=== PATIENT | male | born 1980 | race Caucasian/White ===

== ENCOUNTER → 2018-02-19 | Outpatient (REF) | payer BC | LOC: M SMT 13:09 | DX: Z30.2 Encounter for sterilization (principal) | CPT/HCPCS: 88302 ==

== ENCOUNTER → 2018-06-13 | Outpatient (REF) | payer BC ==
[2018-06-13 15:24] LABS: IMMMOTILE SPERM CENTRIFUGED ABSENT (ABSENT); IMMOTILE SPERM ABSENT (ABSENT); MOTILE SPERM ABSENT (ABSENT); MOTILE SPERM CENTRIFUGED ABSENT (ABSENT); SEMEN APPEARANCE OPAQUE (OPAQUE); SEMEN VISCOSITY LIQUID (LIQUID); SEMEN VOLUME 2.8 ml (4.0-5.0); SEMEN pH 8.5 (7.0-8.0); WBC CONCENTRATION >1 M/ml (<=1 M/ml)
== END ==
LOC: M SMT 15:12
DX: Z30.2 Encounter for sterilization (principal)
CPT/HCPCS: 89321

== ENCOUNTER 2020-01-26 15:03 | Inpatient (IN) | payer BC ==
[~2020-01-26] VITALS: Ht 182.9 cm; Wt 87.4 kg
[2020-01-26 15:42] LABS: BASO # 0.1 10^3/uL (0.0-0.2); BASO % 0.7 % (0.0-1.0); EOS # 0.3 10^3/uL (0.0-0.5); EOS % 3.5 % (0.0-3.0); HEMATOCRIT 45.1 % (42.0-52.0); HEMOGLOBIN 15.2 g/dl (13.5-17.5); LYMPH # 1.7 10^3/uL (1.5-5.0); LYMPH % 23.7 % (24.0-44.0); MEAN CORPUSCULAR HEMOGLOBIN 30.9 pg (27.0-33.0); MEAN CORPUSCULAR HGB CONC 33.7 g/dl (32.0-36.5); MEAN CORPUSCULAR VOLUME 91.7 fl (80.0-96.0); MONO # 0.5 10^3/uL (0.0-0.8); MONO % 6.8 % (0.0-5.0); NEUTROPHILS # 4.7 10^3/uL (1.5-8.5); NEUTROPHILS % 64.9 % (36.0-66.0); PLATELET COUNT, AUTOMATED 297 10^3/uL (150-450); RED BLOOD COUNT 4.92 10^6/uL (4.30-6.10); WHITE BLOOD COUNT 7.2 10^3/uL (4.0-10.0)
--- NOTE | 2020-01-26 15:42 | REP ---
Portable chest, 03:25 p.m., single AP view the patient upright: There are no comparisons. The lung rai are clear. The cardiac size is normal. The lucero, mediastinum, and skeletal structures are unremarkable. Impression: Negative portable chest. Electronically Signed by Norm Ramos MD 01/26/2020 03:34 P
[2020-01-26 15:47] LABS: INR 0.96; PROTHROMBIN TIME 12.5 SECONDS (11.8-14.0)
[2020-01-26 15:48] LABS: PARTIAL THROMBOPLASTIN TIME 29.4 SECONDS (25.0-38.4)
--- NOTE | 2020-01-26 15:57 | REP ---
CT brain without contrast: History: CVA. No comparison study. Findings: Preliminary digital vat overhauler radiograph is unremarkable. On bone window settings, the bony calvarium is intact. Visualized paranasal sinuses are clear. No intraorbital abnormality is seen. On soft tissue window settings, lateral, third, fourth ventricles are normal in size and position. There is an ill-defined low density area in the basal ganglia on the left measuring approximately 14 mm in diameter. This is consistent with a subacute infarction. There is no evidence of intracranial hemorrhage. No mass or extra-axial fluid collection is seen. Pop/white differentiation pattern is otherwise normal. Impression: Ill-defined 14 mm low density in the left basal ganglia consistent with subacute infarction. No hemorrhage is seen. Otherwise negative. Electronically Signed by Claudio Gerber MD 01/26/2020 05:49 P
[2020-01-26 16:01] LABS: CK-MB VALUE MASS < 1.0 NG/ML (<3.6); CPK CREATINE PHOSPHOKINASE 79 U/L (39-308); MB/CK RELATIVE INDEX 1.27 (< OR =4); TROPONIN I < 0.02 NG/ML (< 0.10)
--- NOTE | 2020-01-26 20:19 | REPVR ---
PROCEDURE INFORMATION: Exam: MR Head Without Contrast Exam date and time: 01/26/2020 7:46 PM Age: 40 years old Clinical indication: Altered mental status/memory loss; Confusion or disorientation; Patient HX: Right sided weakness speech issues coordination is off said he been like this for two days; Additional info: CVA TECHNIQUE: Imaging protocol: MR of the head without contrast. COMPARISON: CT Head without contrast 01/26/2020 3:25 PM FINDINGS: Brain: 2 cm acute infarct in the left caba radiata extending into the left basal ganglia. Ventricles: Normal. No ventriculomegaly. Bones/joints: Unremarkable. Soft tissues: Unremarkable. Sinuses: Normal as visualized. No acute sinusitis. Mastoid air cells: Normal as visualized. No mastoid effusion. Orbits: Unremarkable. IMPRESSION: Acute infarct in the left caba radiata extending into the left basal ganglia. Electronically signed by: Maximus Fosetr On 01/26/2020 20:19:26 PM
--- NOTE | 2020-01-26 20:26 | REPVR ---
PROCEDURE INFORMATION: Exam: MR Angiogram Head Without Contrast, Arteries Exam date and time: 01/26/2020 7:46 PM Age: 40 years old Clinical indication: Cognitive deficit; Altered mental status; Patient HX: Right sided weakness speech issues coordination is off said he been like this for two days; Additional info: CVA TECHNIQUE: Imaging protocol: MR angiogram head without contrast. Exam focused on the arteries. 3D rendering: MIP and/or 3D reconstructed images were created by the technologist. COMPARISON: CT Head without contrast 01/26/2020 3:25 PM FINDINGS: Right internal carotid artery: Unremarkable. Intracranial segment is patent with no significant stenosis. No aneurysm. Right anterior cerebral artery: Unremarkable. No occlusion or significant stenosis. No aneurysm. Right middle cerebral artery: Unremarkable. No occlusion or significant stenosis. No aneurysm. Right posterior cerebral artery: Unremarkable. No occlusion or significant stenosis. No aneurysm. Right vertebral artery: Unremarkable. No occlusion or significant stenosis. No aneurysm. Left internal carotid artery: Unremarkable. Intracranial segment is patent with no significant stenosis. No aneurysm. Left anterior cerebral artery: Unremarkable. No occlusion or significant stenosis. No aneurysm. Left middle cerebral artery: Unremarkable. No occlusion or significant stenosis. No aneurysm. Left posterior cerebral artery: Unremarkable. No occlusion or significant stenosis. No aneurysm. Left vertebral artery: Unremarkable. No occlusion or significant stenosis. No aneurysm. Basilar artery: Unremarkable. No occlusion or significant stenosis. No aneurysm. IMPRESSION: No acute abnormality. Electronically signed by: Maximus Foster On 01/26/2020 20:26:24 PM
[2020-01-26] MEDS: NS 1,000 ML IV SCH (21:03)
--- NOTE | 2020-01-26 21:24 | HPEPDOC ---
[facility] Medical History & Physical Date of Admission Jan 26, 2020 Date of Service: Jan 26, 2020 Attending Physician: ED STEINBERG MD History and Physical TIME OF SERVICE: 10:15 PM CHIEF COMPLAINT: Difficulty speaking and lack of coordination HISTORY OF PRESENT ILLNESS: This is a 40-year-old male who came to the hospital for evaluation of developed difficulties "getting his words out" and lack of coordination with his right hand. This began about 3 days ago while he was drinking coffee; he dropped the coffee and developed difficulties with his speech. His told him that he might of had a stroke, but the patient did not come to the hospital because he was in denial. Yesterday evening, his symptoms became worse so he decided to come to the hospital for evaluation. Denies falling, denies having a headache, denies having blurry vision, denies having difficulty swallowing, and denies having shortness of breath. He has had a cough for a few weeks. Per discussion with ER provider, Dr. Chavez recommended Carotid US and keeping the patient's SBP >140. REVIEW OF SYSTEMS: 12 point review of systems negative except as listed in HPI PAST MEDICAL/ SURGICAL HISTORY: He denies having a history of hypertension or taking any medications. Status post vasectomy SOCIAL HISTORY: He smokes He drinks 1 alcoholic beverage mainly on the weekends FAMILY HISTORY: His daughter has diabetes ALLERGIES: Please see below. HOME MEDICATIONS: Please see below. PHYSICAL EXAMINATION: VITAL SIGNS: Please see below. GEN: well-nourished / well developed/ flat affect / aris like cigarettes INTEGUMENT: not flushed/ not jaundice / no rashes / no skin lesions HEENT: NCAT / lips acyanotic CVS: RRR/NMRG / no lower extremity edema LUNGS: able to speak full sentences without stopping to take a breath / lungs are clear to auscultation bilaterally on room air ABDOMEN: Contour (flat) / the abdomen is tympanic on percussion, soft & not tender with palpation MSK/EXTREMITIES: range of motion intact in all 4 extremities NEURO: CN 2-12 are grossly intact / speech is not dysarthric / strength is 5/5 except for the RUE where the strength is -5/ 5 PSYCH: alert and oriented to person place and time/ able to understand and follow all commands LABORATORY DATA: See below. IMAGING: CT head " Impression: Ill-defined 14 mm low density in the left basal ganglia consistent with subacute infarction. No hemorrhage is seen. Otherwise negative." Chest xray " Impression: Negative portable chest." MRI brain w/o contrast " IMPRESSION: No acute abnormality" MRI brain w contrast " IMPRESSION: Acute infarct in the left caba radiata extending into the left basal ganglia." MICROBIOLOGY: Please see below. ASSESSMENT: Mr. Garcia is a 40-year-old male with no significant past medical history was admitted for evaluation of an acute left caba radiata/basal ganglia infarct. PLAN: 1. Acute left caba radiata/basal ganglia infarct Cause TBD Plan: admit to PCU / telemetry /fall precautions / neurochecks / f/u lipid panel for ACVD risk score & A1C, TSH/ pending carotid US, the day time team can decied if an echo is warranted, if the CVA is cryptogenic he may need to be referred to Cardio on an out patient basis for an event monitor to diagnose paroxysmal A.fib / NPO pending swallow evaluation by SPL / PT/OT consult / ASA /neurology consult 2.Tobacco Abuse - Plan: smoking cessation education / nicotine patch PRN DVT PROPHYLAXIS: Lovenox DISPOSITION: home after more than 2 midnight's stay Vital Signs Vital Signs Date Time Temp Pulse Resp B/P (MAP) Pulse Ox O2 Delivery O2 Flow Rate FiO2 01/26/20 20:23 60 18 123/61 (81) 98 Room Air 01/26/20 15:04 98.1 Laboratory Data Labs 24H Laboratory Tests 2 01/26/20 15:21: Bedside Glucose (Misc Panel) 108H 01/26/20 15:23: Immature Granulocyte % (Auto) 0.4, Neutrophils (%) (Auto) 64.9, Lymphocytes (%) (Auto) 23.7L, Monocytes (%) (Auto) 6.8H, Eosinophils (%) (Auto) 3.5H, Basophils (%) (Auto) 0.7, Neutrophils # (Auto) 4.7, Lymphocytes # (Auto) 1.7, Monocytes # (Auto) 0.5, Eosinophils # (Auto) 0.3, Basophils # (Auto) 0.1, Nucleated Red Blood Cells % (auto) 0.0, Prothrombin Time 12.5, Prothromb Time International Ratio 0.96, Activated Partial Thromboplast Time 29.4, Total Creatine Kinase 79, Creatine Kinase MB < 1.0, Creatine Kinase MB Relative Index 1.27, Troponin I < 0.02 01/26/20 15:30: POC Glucose (Misc Panel) 109H, POC Sodium (Misc Panel) 142, POC Potassium (Misc Panel) 4.0, POC Chloride (Misc Panel) 103, POC Total CO2 (Misc Panel) 28.0H, POC Blood Urea Nitrogen (Misc Panel 13, POC Ionized Calcium (Misc Panel) 4.8, POC Creatinine (Misc Panel) 0.9, POC Hematocrit (Misc Panel) 47.0 CBC/BMP Laboratory Tests 01/26/20 15:23 Home Medications No Active Prescriptions or Reported Meds Allergies Coded Allergies: bee venom protein (honey bee) (Verified Allergy, Unknown, 01/26/20) mushroom (Verified Allergy, Unknown, 01/26/20) hydrocodone (Verified Adverse Reaction, Intermediate, palpitations, 01/26/20) A-FIB/CHADSVASC A-FIB History Current/History of A-Fib/PAF?: No Current PO Anticoag Therapy: ED Yen MD Jan 26, 2020 21:24
[2020-01-26 22:00] LABS: HEMOGLOBIN A1c 5.7 %
[2020-01-26 22:50] VITALS: BP 120/76
--- NOTE | 2020-01-26 23:17 | REPVR ---
PROCEDURE INFORMATION: Exam: US Duplex Bilateral Extracranial Arteries Exam date and time: 01/26/2020 10:36 PM Age: 40 years old Clinical indication: Altered mental status/memory loss and speech disturbance and weakness, extremity and weakness, facial; Right; Confusion or disorientation; Unspecified; Additional info: CVA TECHNIQUE: Imaging protocol: Real-time Duplex ultrasound scan of the bilateral carotid and vertebral arteries combining briscoe scale, color Doppler and spectral waveform analysis. Bilateral exam. COMPARISON: CT Head without contrast 01/26/2020 3:25 PM FINDINGS: Right common carotid artery: Unremarkable. No occlusion or stenosis. Waveforms are normal. Right internal carotid artery: Unremarkable. No occlusion or stenosis. Waveforms are normal. Right ICA/CCA ratio: Within normal limits. Right external carotid artery: No stenosis in the origin. Right vertebral artery: Unremarkable. Antegrade flow Left common carotid artery: Unremarkable. No occlusion or stenosis. Waveforms are normal. Left internal carotid artery: Unremarkable. No occlusion or stenosis. Waveforms are normal. Left ICA/CCA ratio: Within normal limits. Left external carotid artery: No stenosis in the origin. Left vertebral artery: Unremarkable. Antegrade flow. IMPRESSION: No significant stenosis of bilateral internal carotid arteries. Vertebral arteries are patent. REFERENCES: Carotid Stenosis Reference using SRU criteria: Mild: less than 50% stenosis. ICA PSV is less than 125 cm/second and plaque or intimal thickening is visible. Moderate: 50-69% stenosis. ICA PSV is 125 to 230 cm/second and plaque is visible. Severe: 70-94% stenosis. ICA PSV is more than 230 cm/second and visible plaque and lumen narrowing are seen. Near occlusion: 95-99% stenosis. ICA PSV is variable and significant plaque and luminal narrowing are seen. Occluded: 100% stenosis. No flow identified. Electronically signed by: Maximus Foster On 01/26/2020 23:17:01 PM
[2020-01-27] MEDS: NS 1,000 ML IV SCH ×3 (01:05→09:09)
[2020-01-27 04:00] VITALS: BP 117/66
[2020-01-27] MEDS ORDERED: NICOTINE 14 MG/24 HR TRANSDERMAL TD PRN (04:00)
[2020-01-27 05:38] LABS: HEMATOCRIT 39.9 % (42.0-52.0); HEMOGLOBIN 13.3 g/dl (13.5-17.5); MEAN CORPUSCULAR HEMOGLOBIN 30.9 pg (27.0-33.0); MEAN CORPUSCULAR HGB CONC 33.3 g/dl (32.0-36.5); MEAN CORPUSCULAR VOLUME 92.8 fl (80.0-96.0); PLATELET COUNT, AUTOMATED 269 10^3/uL (150-450); WHITE BLOOD COUNT 7.1 10^3/uL (4.0-10.0)
[2020-01-27 05:53] LABS: BLOOD UREA NITROGEN 14 MG/DL (7-18); CALCIUM LEVEL 8.1 MG/DL (8.5-10.1); CARBON DIOXIDE LEVEL 27 MEQ/L (21-32); CHLORIDE LEVEL 114 MEQ/L (98-107); CHOLESTEROL LEVEL 146 MG/DL (<200); CHOLESTEROL RISK RATIO 3.395 (<5); CREATININE FOR GFR 0.93 MG/DL (0.70-1.30); GLOMERULAR FILTRATION RATE > 60.0 (>60); GLUCOSE, FASTING 99 MG/DL (70-100); HDL CHOLESTEROL 43 MG/DL (>40); LDL CHOLESTEROL 76 MG/DL (<100); NON-HDL-C 103 MG/DL; POTASSIUM SERUM 3.9 MEQ/L (3.5-5.1); SODIUM LEVEL 144 MEQ/L (136-145); TRIGLYCERIDES LEVEL 137 MG/DL (<150)
[2020-01-27 06:00] VITALS: BP 117/66
[2020-01-27 08:00] VITALS: BP 119/60
--- NOTE | 2020-01-27 08:03 | ECGEPIP ---
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
[2020-01-27] MEDS ORDERED: ASPIRIN 325 MG TAB PO SCH (09:00)
[2020-01-27] MEDS ORDERED: ASPIRIN 300 MG SUPP PR SCH (09:00)
[2020-01-27] MEDS: ENOXAPARIN 40 MG/0.4 ML SYRINGE (J1650) SC SCH (09:09)
[2020-01-27 12:00] VITALS: BP 121/58
--- NOTE | 2020-01-27 14:06 | IPNPDOC ---
Subjective Date Seen The patient was seen on 01/27/20. Subjective Chief Complaint/HPI symptoms unchanged. speech affected. at bedside Objective Physical Examination General Exam: Positive: Alert, No Acute Distress Eye Exam: Positive: PERRLA ENT Exam: Positive: Atraumatic Neck Exam: Positive: Supple Chest Exam: Positive: Clear to auscultation Heart Exam: Positive: Regular Rhythm, Normal S1, Normal S2 Abdomen Exam: Positive: Normal bowel sounds Extremity Exam: Negative: Clubbing, Cyanosis, Edema Neuro Exam: Positive: Normal Tone, Sensation Intact, Cranial Nerves 3-12 NL, Other (finger to nose delayed on right side, slurred speech, mild facial droop. Strength 4/5 on right side) Psych Exam: Positive: Mental status NL, Mood NL Assessment /Plan Assessment # Acute basal ganglia stroke # Tobacco use disorder - asa - echo ordered - hypercoagulable w/u pending - advised to stop smoking - neuro consult pending - LDL 76, can consider adding atorvastatin if atherosclerosis is believed to be a precipitant. - will need holter monitor as outpatient - MRA brain and carotid scan are normal - home in am Plan/VTE VTE Prophylaxis Ordered?: Yes VTE Exclusion Mechanical Proph: N/A:VTE Prophy Ordered VTE Exclusion Pharmacological: N/A:VTE Prophy Ordered (lovenox) VS, I&O, 24H, Fishbone Vital Signs/I&O Vital Signs Date Time Temp Pulse Resp B/P (MAP) Pulse Ox O2 Delivery O2 Flow Rate FiO2 01/27/20 08:00 97.7 65 16 119/60 (79) 98 Room Air I&O- Last 24 Hours up to 6 AM 01/27/20 06:00 Intake Total 1500 ml Balance 1500 ml Laboratory Data 24H LABS Laboratory Tests 2 01/26/20 15:21: Bedside Glucose (Misc Panel) 108H 01/26/20 15:23: Immature Granulocyte % (Auto) 0.4, Neutrophils (%) (Auto) 64.9, Lymphocytes (%) (Auto) 23.7L, Monocytes (%) (Auto) 6.8H, Eosinophils (%) (Auto) 3.5H, Basophils (%) (Auto) 0.7, Neutrophils # (Auto) 4.7, Lymphocytes # (Auto) 1.7, Monocytes # (Auto) 0.5, Eosinophils # (Auto) 0.3, Basophils # (Auto) 0.1, Nucleated Red Blood Cells % (auto) 0.0, Prothrombin Time 12.5, Prothromb Time International Ratio 0.96, Activated Partial Thromboplast Time 29.4, Total Creatine Kinase 79, Creatine Kinase MB < 1.0, Creatine Kinase MB Relative Index 1.27, Troponin I < 0.02, Thyroid Stimulating Hormone (TSH) 1.110 01/26/20 15:30: POC Glucose (Misc Panel) 109H, POC Sodium (Misc Panel) 142, POC Potassium (Misc Panel) 4.0, POC Chloride (Misc Panel) 103, POC Total CO2 (Misc Panel) 28.0H, POC Blood Urea Nitrogen (Misc Panel 13, POC Ionized Calcium (Misc Panel) 4.8, POC Creatinine (Misc Panel) 0.9, POC Hematocrit (Misc Panel) 47.0 01/26/20 15:42: Estimated Mean Plasma Glucose 117H, Hemoglobin A1c 5.7 01/27/20 05:14: Nucleated Red Blood Cells % (auto) 0.0, Anion Gap 3L, Glomerular Filtration Rate > 60.0, Calcium Level 8.1L, Triglycerides Level 137, Total Cholesterol 146, LDL Cholesterol 76, Non-HDL Cholesterol (LDL + VLDL) 103, Total HDL Cholesterol 43, Cholesterol/HDL Ratio 3.395 01/27/20 09:29: 01/27/20 09:30: CBC/BMP Laboratory Tests 01/26/20 15:23 01/27/20 05:14 KELLE MONTES DE OCA MD Jan 27, 2020 14:06
[2020-01-27] MEDS ORDERED: SLF 3 ML SYR IV PRN (14:45)
[2020-01-27] MEDS: SLF 3 ML SYR IV SCH ×2 (14:50→22:16)
[2020-01-27 16:00] VITALS: BP 110/52
[2020-01-27 20:00] VITALS: BP 121/63
[2020-01-28] VITALS: BP 147/70
[2020-01-28 04:00] VITALS: BP 129/71
[2020-01-28] MEDS: SLF 3 ML SYR IV SCH (04:25)
[2020-01-28 07:28] LABS: HEMATOCRIT 39.7 % (42.0-52.0); HEMOGLOBIN 13.2 g/dl (13.5-17.5); MEAN CORPUSCULAR HEMOGLOBIN 30.8 pg (27.0-33.0); MEAN CORPUSCULAR HGB CONC 33.2 g/dl (32.0-36.5); MEAN CORPUSCULAR VOLUME 92.5 fl (80.0-96.0); PLATELET COUNT, AUTOMATED 267 10^3/uL (150-450); RED BLOOD COUNT 4.29 10^6/uL (4.30-6.10); WHITE BLOOD COUNT 8.2 10^3/uL (4.0-10.0)
[2020-01-28 08:00] VITALS: BP 111/59
[2020-01-28 08:13] LABS: BLOOD UREA NITROGEN 15 MG/DL (7-18); CALCIUM LEVEL 8.4 MG/DL (8.5-10.1); CARBON DIOXIDE LEVEL 27 MEQ/L (21-32); CHLORIDE LEVEL 112 MEQ/L (98-107); CREATININE FOR GFR 0.92 MG/DL (0.70-1.30); GLOMERULAR FILTRATION RATE > 60.0 (>60); GLUCOSE, FASTING 82 MG/DL (70-100); MAGNESIUM LEVEL 2.1 MG/DL (1.8-2.4); POTASSIUM SERUM 4.4 MEQ/L (3.5-5.1); SODIUM LEVEL 144 MEQ/L (136-145)
[2020-01-28] MEDS ORDERED: ASPIRIN ENTERIC 325 MG TAB PO SCH (09:00)
[2020-01-28] MEDS: ENOXAPARIN 40 MG/0.4 ML SYRINGE (J1650) SC SCH (09:12)
--- NOTE | 2020-01-28 11:12 | ECHO ---
DATE OF SERVICE: 01/27/2020 AGE: 40 REFERRING PROVIDER: Dr. Ty Mcdonald PATIENT LOCATION: 3221 REASON FOR STUDY: CVA. 2D MEASUREMENTS: IVS: 1.1 cm LV: 5.1 cm LVPW: 1.1 cm LA: 3.33 cm Aorta: 3.3 cm RV: 3.3 cm IVC: 2.4 cm DOPPLER MEASUREMENTS: Peak velocity across the aortic valve: 1.7 m/s Peak velocity across the LVOT: 0.87 m/s Mitral E: 0.87 Mitral A: 0.58 with a ratio of 1.5 2D COMMENTS: 1. Normal left ventricular size, wall thickness, and normal global left ventricular systolic function. The estimated left ventricular systolic ejection fraction is 60-65%. 2. Normal left atrium. Normal right atrium and right ventricle. 3. The atrial septum appeared to be normal without evidence of defect or shunt. 4. Normal aortic root. 5. No pericardial effusion seen. 6. The aortic valve, mitral valve, tricuspid valve, and pulmonic valve appeared to be normal. The proximal pulmonary artery branches also appear to be normal. 7. The inferior vena cava is mildly enlarged, central venous pressure might be elevated. DOPPLER: No significant valvular abnormalities detected but trace tricuspid regurgitation and trace pulmonic regurgitation. Assessment of the left ventricular diastolic function appeared to be normal. IMPRESSION: 1. Normal global left ventricular systolic and diastolic function. 2. Trace tricuspid regurgitation. 3. Trace pulmonic regurgitation. 4. The patient, during the test, was noted to be bradycardic at times with a heart rate that varied between 40 and 50 beats per minute. MTDD
[2020-01-28] MEDS ORDERED: ASPI81TA85 PO (11:42)
--- NOTE | 2020-01-28 11:45 | IPNPDOC ---
Subjective Date Seen The patient was seen on 01/28/20. Subjective Chief Complaint/HPI No issues overnight Objective Physical Examination General Exam: Positive: Alert, No Acute Distress Eye Exam: Positive: PERRLA ENT Exam: Positive: Atraumatic Neck Exam: Positive: Supple Chest Exam: Positive: Clear to auscultation Heart Exam: Positive: Regular Rhythm, Normal S1, Normal S2 Abdomen Exam: Positive: Normal bowel sounds Extremity Exam: Negative: Clubbing, Cyanosis, Edema Neuro Exam: Positive: Normal Tone, Sensation Intact, Cranial Nerves 3-12 NL, Other (finger to nose delayed on right side, slurred speech, mild facial droop. Strength 4/5 on right side) Psych Exam: Positive: Mental status NL, Mood NL Assessment /Plan Assessment # Acute basal ganglia stroke # Tobacco use disorder - asa 81 mg daily - echo normal - hypercoagulable w/u pending, f/u results with neuro/pcp - advised to stop smoking - LDL 76, can consider adding atorvastatin if atherosclerosis is believed to be a precipitant. - will need holter monitor as outpatient - MRA brain and carotid scan are normal - home today with outpatient speech eval Plan/VTE VTE Prophylaxis Ordered?: Yes VTE Exclusion Mechanical Proph: N/A:VTE Prophy Ordered VTE Exclusion Pharmacological: N/A:VTE Prophy Ordered (lovenox) VS, I&O, 24H, Fishbone Vital Signs/I&O Vital Signs Date Time Temp Pulse Resp B/P (MAP) Pulse Ox O2 Delivery O2 Flow Rate FiO2 01/28/20 08:00 97.1 47 17 111/59 (76) 98 Room Air I&O- Last 24 Hours up to 6 AM 01/28/20 06:00 Intake Total 1980 ml Output Total 1300 ml Balance 680 ml Laboratory Data 24H LABS Laboratory Tests 2 01/28/20 06:18: Nucleated Red Blood Cells % (auto) 0.0, Anion Gap 5L, Glomerular Filtration Rate > 60.0, Calcium Level 8.4L, Magnesium Level 2.1 CBC/BMP Laboratory Tests 01/28/20 06:18 KELLE MONTES DE OCA MD Jan 28, 2020 11:45
[2020-01-28 12:00] VITALS: BP 118/55
--- NOTE | 2020-01-28 15:00 | CR ---
DATE OF CONSULTATION: 01/28/2020 Leon Garcia was seen in consultation today for evaluation of acute stroke. The patient is a 40-year-old male who presented to the hospital 3 days after noticing right hand clumsiness and difficulty with his speech. He had difficulty speaking words. In the emergency department he was noted to have CT evidence of acute stroke and MRI evidence of acute stroke as well. The stroke is involving the left caba radiata and reaching into the left basal ganglia. Carotid ultrasounds were negative as well as MR angiography. Echocardiogram has been completed, which was negative without any evidence of intraatrial shunt. The patient has been placed on aspirin. He does smoke a pack of tobacco per day and is ready to quit. The patient would benefit by being placed on low-dose statin. At the present time he continues to have difficulty with his speech particulate with initiating words. He has to take his time and speaks slowly. He cannot repeat. He does have some clumsiness in his right upper extremity on [id number]. He does have some weakness of the right upper extremity with slight pronator drift. Lower extremities appear to be 5/5 in strength. REVIEW OF SYSTEMS: 14-point review of systems obtained and is negative except for as per history of present illness (HPI). PAST MEDICAL HISTORY: Tobacco abuse. FAMILY HISTORY: Noncontributory. SOCIAL HISTORY: Smokes one-pack tobacco per day. Drinks one alcoholic beverage on weekends. Denies any recreational drug use. HOME MEDICATIONS: None. ALLERGIES: Been venom, mushrooms HYDROCODONE. PHYSICAL EXAMINATION: Blood pressure is 121/58, pulse rate is 56, respiratory rate is 16, temperature is 98 degrees Fahrenheit oxygenation 99% on room air. The patient is awake, alert, oriented to person, place and time. Speech language comprehension, repetition are intact. . Pupils are 3 mm round, reactive intact. Extraocular movements are intact without nystagmus. Sensation V1, V2, V3 is intact to light touch. Speech is aphasic with difficulty in initiating speech. He cannot repeat. Hearing subjectively equal to finger rub. There is no weakness of sternocleidomastoids bilaterally. There is no facial weakness on exam. Tongue is midline. Palate elevates symmetrically. There is slight pronator drift of the right upper extremity. There is ataxia on [id number] of the right upper extremity. Strength is 5/5 in the lower extremities and in the left arm and appears to be intact in the right upper extremity at the present time. Sensory is intact to all four extremities to light touch. Deep tendon reflexes are 2+ throughout. Babinski signs are absent. The patient withdraws to tactile stimulation to the sole of the foot. Gait deferred. ASSESSMENT: Acute ischemic stroke of the left caba radiata and left basal ganglia, possibly related to underlying microvascular disease secondary to tobacco abuse. PLAN: 1. Continue aspirin 81 mg by mouth daily. Continue deep venous thrombosis (DVT) prophylaxis. 2. Start statin therapy. Continue low-dose atorvastatin 20 mg daily. 3. Continue telemetry monitoring, physical therapy (PT) occupational therapy (OT) evaluation. Speech evaluation. The patient counseled to quit tobacco. The patient may need nicotine patches on discharge. History obtained from both the patient and the patient's . The patient should be seen in outpatient neurology clinic in 6-8 weeks post discharge.
--- NOTE | 2020-02-01 19:34 | DSES ---
DATE OF ADMISSION: 01/26/2020 DATE OF DISCHARGE: 01/28/2020 DISCHARGE DIAGNOSES: 1. Acute basal ganglia stroke. 2. Tobacco use disorder. 3. Hyperlipidemia. PROCEDURES PERFORMED DURING THIS HOSPITALIZATION: None. CONSULTANTS ON THE CASE: Dr. Bose of neurology. DISPOSITION: The patient is discharged home. CONDITION ON DISCHARGE: Stable. LABORATORIES PENDING AT THE TIME OF DISCHARGE AND WILL NEED TO BE FOLLOWED AN OUTPATIENT: Hypercoagulable panel. DISCHARGE INSTRUCTIONS: The patient is instructed to followup with his primary care provider in approximately 1 week. The patient is to follow with speech therapy as an outpatient. The patient is to followup with neurology as an outpatient in the next 6 weeks. CONDITION AT DISCHARGE: Improved. RELEVANT LABORATORIES: White blood cell count 8.2, hemoglobin 13, hematocrit 39, platelet count 267. Sodium 144, potassium 4.4, chloride 112, carbon dioxide 27, BUN 15, creatinine 0.92, magnesium 2.1, TSH 1.11, triglycerides 137, total cholesterol 146, LDL 76, non HDL was 103, total HDL was 43, CPK was 79, troponin markers were negative. Hypercoagulable panel was pending at the time of discharge. RELEVANT IMAGING STUDIES: CT scan of the head showed ill defined 14 mm low density in the left basal ganglia consistent with subacute infarction, no hemorrhages seen, otherwise negative. Chest x-ray showed no acute intrathoracic pathology. MRI of the brain did not show any evidence of vascular malformations or stenosis. MRI of the brain showed 2 cm acute infarct in the left caba radiata and extending into the left basal ganglia. Carotid ultrasound did not show any evidence of significant carotid stenosis. DISCHARGE MEDICATIONS: - aspirin 81 mg by mouth daily - atorvastatin 20 mg by mouth at bedtime HOSPITAL COURSE: Minimal response level Radha is a 40-year-old gentleman who had presented to the hospital with a primary complaint of difficulty speaking and lack of coordination. Imaging studies done in the emergency department indicated that he had an acute stroke. He was admitted to the hospitalist service to the progressive care unit (PCU) where he was placed on neuro checks. He had no worsening in his condition. Imaging studies confirmed that he had a stroke. Echocardiogram, as well as pertinent imaging failed to show any acute etiology, it was felt that his symptoms were secondary to atherosclerosis associated with tobacco use. He was counseled about smoking cessation. He was seen by neurology during this hospitalization, as well as speech and physical therapy (PT) and occupational therapy (OT) . He was cleared by physical therapy (PT) and occupational therapy (OT); however, his speech indicated dysphagia. He was recommended for outpatient speech therapy upon discharge. The patient was discharged home in stable condition.
[2020-02-02 10:30] LABS: DRVV SCREEN 37.5 SEC
[2020-02-02 10:36] LABS: PTT LUPUS TYPE ANTICOAG SCREEN 0.9 (0-1.2)
== END 2020-01-28 16:05 | disposition home or self-care (01) | DRG 45 ==
LOC: M ED 15:03 → M ED INP 21:18 → ENRESERVDT 21:52 → ENRESERVTM 21:52 → M PCU 22:44
PROVIDERS: ADMIT Internal Medicine; ATTEND Internal Medicine
DX: I63.22 Cerebral infarction due to unspecified occlusion or stenosis of basilar artery (principal); F17.200 Nicotine dependence, unspecified, uncomplicated; E78.5 Hyperlipidemia, unspecified; I69.320 Aphasia following cerebral infarction; Z88.6 Allergy status to analgesic agent; Z91.030 Bee allergy status; Z91.018 Allergy to other foods

== ENCOUNTER 2020-02-10 12:18 | Outpatient (RCR) | payer BC ==
[~2020-02-10 12:18] MED LIST: ASPI81TA85 PO
== END 2020-03-01 ==
LOC: M ST 12:18
PROVIDERS: ATTEND Nurse Practitioner Family
DX: Z51.89 Encounter for other specified aftercare (principal); I69.391 Dysphagia following cerebral infarction

== ENCOUNTER → 2020-04-26 | Outpatient (REF) | payer BC ==
[2020-04-26 17:12] LABS: BASO # 0.1 10^3/uL (0.0-0.2); BASO % 0.6 % (0.0-1.0); EOS # 0.3 10^3/uL (0.0-0.5); EOS % 3.6 % (0.0-3.0); HEMATOCRIT 44.9 % (42.0-52.0); HEMOGLOBIN 14.8 g/dl (13.5-17.5); LYMPH # 1.9 10^3/uL (1.5-5.0); LYMPH % 22.7 % (24.0-44.0); MEAN CORPUSCULAR HEMOGLOBIN 29.8 pg (27.0-33.0); MEAN CORPUSCULAR VOLUME 90.3 fl (80.0-96.0); MONO # 0.8 10^3/uL (0.0-0.8); MONO % 9.4 % (0.0-5.0); NEUTROPHILS # 5.4 10^3/uL (1.5-8.5); NEUTROPHILS % 63.3 % (36.0-66.0); PLATELET COUNT, AUTOMATED 275 10^3/uL (150-450); RED BLOOD COUNT 4.97 10^6/uL (4.30-6.10); WHITE BLOOD COUNT 8.5 10^3/uL (4.0-10.0)
[2020-04-26 17:19] LABS: ALBUMIN 3.9 GM/DL (3.2-5.2); ALT/SGPT 26 U/L (12-78); BILIRUBIN,TOTAL 0.3 MG/DL (0.2-1.0); BLOOD UREA NITROGEN 15 MG/DL (7-18); CALCIUM LEVEL 9.3 MG/DL (8.5-10.1); CARBON DIOXIDE LEVEL 28 MEQ/L (21-32); CHLORIDE LEVEL 110 MEQ/L (98-107); CHOLESTEROL LEVEL 174 MG/DL (<200); CHOLESTEROL RISK RATIO 1.955 (<5); CREATININE FOR GFR 1.07 MG/DL (0.70-1.30); GLOMERULAR FILTRATION RATE > 60.0 (>60); GLUCOSE, FASTING 97 MG/DL (70-100); HDL CHOLESTEROL 89 MG/DL (>40); LDL CHOLESTEROL 71 MG/DL (<100); MAGNESIUM LEVEL 2.3 MG/DL (1.8-2.4); NON-HDL-C 85 MG/DL; POTASSIUM SERUM 4.6 MEQ/L (3.5-5.1); SODIUM LEVEL 142 MEQ/L (136-145); TOTAL PROTEIN 7.2 GM/DL (6.4-8.2); TRIGLYCERIDES LEVEL 69 MG/DL (<150)
== END ==
LOC: M LAB REF 16:01
PROVIDERS: ATTEND Physician Assistant
DX: M62.838 Other muscle spasm (principal); E78.00 Pure hypercholesterolemia, unspecified; I63.89 Other cerebral infarction

== ENCOUNTER 2021-03-08 13:10 | Emergency (ER) | payer BC ==
[~2021-03-08] VITALS: Ht 182.9 cm; Wt 95.6 kg
[~2021-03-08 13:10] MED LIST changes: -ASPI81TA85 PO; +ASPI81TA86 PO
--- NOTE | 2021-03-08 13:46 | REP ---
INDICATION: CVA - Nursing interventions must not delay CT. COMPARISON: None. TECHNIQUE: Axial CT images with multiplanar reformations. FINDINGS: There is a focal hypodensity in the left basal ganglia, appears to be the sequelae of a prior infarct, MRI 01/26/2020. A 2nd smaller hypodensity adjacent to the anterior horn of the right lateral ventricle appears new from the comparison MRI of 01/26/2020 however the appearance is not typical for infarct. No acute bleed or evidence of an acute large vessel territorial infarct. Ventricles, cisterns and sulci within normal limits. No mass effect or midline shift. No abnormal fluid collections. IMPRESSION: No definite findings of acute infarct or bleed. Hypodensities as described, on the left appears to be sequelae of an infarct seen on the MRI 01/26/2020. Small hypodensity adjacent to the anterior horn of the right lateral ventricle appears new but does not appear to represent an infarct, may represent sequela of chronic microvascular disease. <Electronically signed by Kodi Lazo > 03/08/21 [id number]
[2021-03-08 13:54] LABS: BASO % 0.7 % (0.0-1.0); EOS # 0.4 10^3/uL (0.0-0.5); EOS % 6.9 % (0.0-3.0); HEMATOCRIT 44.7 % (42.0-52.0); LYMPH % 32.1 % (24.0-44.0); MEAN CORPUSCULAR HEMOGLOBIN 31.2 pg (27.0-33.0); MEAN CORPUSCULAR HGB CONC 33.6 g/dl (32.0-36.5); MEAN CORPUSCULAR VOLUME 92.9 fl (80.0-96.0); MONO # 0.6 10^3/uL (0.0-0.8); MONO % 10.2 % (2.0-8.0); NEUTROPHILS # 3.1 10^3/uL (1.5-8.5); NEUTROPHILS % 49.9 % (36.0-66.0); PLATELET COUNT, AUTOMATED 213 10^3/uL (150-450); RED BLOOD COUNT 4.81 10^6/uL (4.30-6.10); WHITE BLOOD COUNT 6.1 10^3/uL (4.0-10.0)
[2021-03-08] MEDS ORDERED: ISOVUE-370 76% 100ML VIAL As Ordered ONE (14:03)
[2021-03-08 14:11] LABS: BLOOD UREA NITROGEN 18 MG/DL (7-18); CALCIUM LEVEL 9.1 MG/DL (8.5-10.1); CARBON DIOXIDE LEVEL 27 MEQ/L (21-32); CHLORIDE LEVEL 111 MEQ/L (98-107); CREATININE FOR GFR 0.93 MG/DL (0.70-1.30); GLOMERULAR FILTRATION RATE > 60.0 (>60); GLUCOSE, FASTING 94 MG/DL (70-100); POTASSIUM SERUM 4.2 MEQ/L (3.5-5.1); SODIUM LEVEL 141 MEQ/L (136-145)
--- NOTE | 2021-03-08 14:42 | REP ---
INDICATION: CVA. COMPARISON: No prior similar studies. TECHNIQUE: CT angiogram of the neck with contrast. FINDINGS: On the right, the common and internal carotid arteries are widely patent. The vertebral artery is present throughout its cervical course. No focal stenosis or occlusion. On the left, the common and internal carotid arteries widely patent. There is small amount of atherosclerotic calcification adjacent the internal carotid artery at the carotid bifurcation. IMPRESSION: Essentially normal for age examination. No evidence of stenosis or occlusion. <Electronically signed by Kodi Lazo > 03/08/21 [id number]
--- NOTE | 2021-03-08 14:43 | REP ---
INDICATION: CVA. COMPARISON: 01/26/2020. TECHNIQUE: SINGLE PORTABLE AP VIEW OF THE CHEST WAS PERFORMED. FINDINGS: THERE IS NO ACUTE INFILTRATE OR PULMONARY EDEMA. LUNGS ARE CLEAR. HEART IS NOT SIGNIFICANTLY ENLARGED. MEDIASTINAL SILHOUETTE IS UNREMARKABLE. THE VISUALIZED OSSEOUS STRUCTURES ARE INTACT. IMPRESSION: NO ACUTE PULMONARY DISEASE. <Electronically signed by Norm Pop > 03/08/21 [id number]
[2021-03-08] MEDS ORDERED: LEVE10003 PO (14:54)
[2021-03-08] MEDS ORDERED: ATOR1TAB21 PO (14:54)
[2021-03-08] MEDS ORDERED: APTI1TAB4 PO (14:54)
--- NOTE | 2021-03-08 15:07 | REP ---
INDICATION: CVA. COMPARISON: None. TECHNIQUE: CT angiogram of the head with contrast FINDINGS: The vertebral arteries are small but codominant. Basilar artery is small and business quality assurance analyst are small bilaterally. Internal carotid arteries, proximal distal MCA branches are present. A1 segments and SREEKANTH branches are present. There is persistent origin circulation bilaterally. IMPRESSION: Anatomic variant [id number] with small posterior circulation and persistent business quality assurance analyst bilaterally, otherwise normal. No evidence of limiting stenosis or occlusion. <Electronically signed by Kodi Lazo > 03/08/21 [id number]
--- NOTE | 2021-03-08 21:24 | REPVR ---
PROCEDURE INFORMATION: Exam: MR Head Without Contrast Exam date and time: 03/08/2021 8:32 PM Age: 41 years old Clinical indication: Dizziness and walking, difficulty and other: Headache for 5 days, HX of prior CVA; Additional info: CVA vs conversion disorder TECHNIQUE: Imaging protocol: MR of the head without contrast. COMPARISON: MRI-Brain without Contrast 01/26/2020 7:15 PM FINDINGS: Brain: There is no evidence of acute stroke. No evidence of bright signal intensity on the diffusion weighting to suggest acute stroke. On the examination of 01/26/2020 there was a large area of acute stroke left internal capsule region and white matter along the left lateral ventricle. This area is now low in signal intensity on the diffusion weighting and consistent with area of old stroke. There is a moderate-sized mucous retention cyst left maxillary sinus. Maxillary sinuses and para nasal sinuses are otherwise clear. Mastoid air cells: Mastoid air cells appear symmetric. Orbital cavity: The orbits are symmetric. Other vasculature: There is a signal void of the [id number] vessels. IMPRESSION: 1. No evidence of acute stroke. 2. Area of old stroke left internal capsule region and periventricular white matter. Electronically signed by: Uriel Haas On 03/08/2021 21:24:36 PM
[2021-03-08 21:48] VITALS: BP 123/64
--- NOTE | 2021-03-09 01:26 | ECGEPIP ---
[facility] - ED Test Date: 2021-03-08 Pat Name: ROSALIE MACEDO Department: Room: - Gender: Male [employer]: HESHAM : 1980 Requested By: Everette Jung Order Number: [id number] Reading MD: Everette Thompson Measurements Intervals [place] Rate: 56 P: 46 WI: 170 QRS: 3 QRSD: 110 T: 24 QT: 430 QTc: 414 Interpretive Statements Sinus bradycardia Incomplete right bundle branch block SIMILAR TO 01/26/20 Electronically Signed on 03-09-2021 1:25:35 EDT by Everette Thompson
== END 2021-03-08 22:26 | disposition home or self-care (01) ==
LOC: M ED 13:10
DX: F43.0 Acute stress reaction (principal); F44.89 Other dissociative and conversion disorders; Z79.899 Other long term (current) drug therapy; Z79.82 Long term (current) use of aspirin; Z88.5 Allergy status to narcotic agent; Z91.018 Allergy to other foods; Z91.030 Bee allergy status; F17.210 Nicotine dependence, cigarettes, uncomplicated
CPT/HCPCS: 36415; 70450; 70496; 70498; 70551; 71045; 80047; 80048; 85025; 93005; 99285; Q9967

== ENCOUNTER → 2023-11-21 | Outpatient (REF) | payer BC ==
[~2023-11-21] MED LIST changes: +APTI1TAB4 PO; +ATOR1TAB21 PO; +LEVE10003 PO
[2023-11-21 13:17] LABS: HEMATOCRIT 46.2 % (42.0-52.0); HEMOGLOBIN 15.6 g/dl (13.5-17.5); MEAN CORPUSCULAR HEMOGLOBIN 30.9 pg (27.0-33.0); MEAN CORPUSCULAR HGB CONC 33.8 g/dl (32.0-36.5); MEAN CORPUSCULAR VOLUME 91.5 fl (80.0-96.0); PLATELET COUNT, AUTOMATED 256 10^3/uL (150-450); RED BLOOD COUNT 5.05 10^6/uL (4.30-6.10); WHITE BLOOD COUNT 9.3 10^3/uL (4.0-10.0)
[2023-11-21 13:30] LABS: HEMOGLOBIN A1c 5.4 % (4.0-6.0)
[2023-11-21 13:50] LABS: ALBUMIN 3.9 G/DL (3.2-5.2); ALKALINE PHOSPHATASE 61 U/L (46-116); ALT/SGPT 17 U/L (7.0-40); AST/SGOT 15 U/L (<34); BILIRUBIN,TOTAL 0.7 MG/DL (0.3-1.2); BLOOD UREA NITROGEN 14 MG/DL (9-23); CALCIUM LEVEL 9.9 MG/DL (8.5-10.1); CARBON DIOXIDE LEVEL 27 MMOL/L (20-31); CHLORIDE LEVEL 107 MMOL/L (98-107); CHOLESTEROL LEVEL 173 MG/DL (<200); CHOLESTEROL RISK RATIO 2.81 (<5); CREATININE FOR GFR 0.98 MG/DL (0.70-1.30); GLOMERULAR FILTRATION RATE > 60.0 (>60); GLUCOSE, FASTING 83 MG/DL (60-100); HDL CHOLESTEROL 61.5 MG/DL (>40); LDL CHOLESTEROL 96.5 MG/DL (<100); NON-HDL-C 111.5 MG/DL; POTASSIUM SERUM 4.7 MMOL/L (3.5-5.1); SODIUM LEVEL 140 MMOL/L (136-145); TOTAL PROTEIN 6.5 G/DL (5.7-8.2); TRIGLYCERIDES LEVEL 75 MG/DL (<150)
[2023-11-21 13:51] LABS: THYROID STIMULATING HORMONE 1.741 uIU/ML (0.55-4.78)
== END ==
LOC: M LAB REF 12:23
PROVIDERS: ATTEND Nurse Practitioner Family
DX: E78.00 Pure hypercholesterolemia, unspecified (principal); I63.9 Cerebral infarction, unspecified; Z13.1 Encounter for screening for diabetes mellitus

== ENCOUNTER 2025-10-20 20:33 | Emergency (ER) | payer BC ==
[~2025-10-20] VITALS: Ht 182.9 cm; Wt 91.2 kg
[2025-10-20 20:34] VITALS: BP 192/98; TEMP 97.3; O2SAT 99
[2025-10-20] MEDS ORDERED: AMOX875T2 PO (21:20)
[2025-10-20] MEDS: AUGMENTIN 875 MG TAB PO ONE (21:27)
[2025-10-20] MEDS: KETOROLAC 60 MG/2 ML VIAL IM ONE (21:28)
== END 2025-10-20 21:32 | disposition home or self-care (01) ==
LOC: M ED 20:33
DX: K04.7 Periapical abscess without sinus (principal); F17.200 Nicotine dependence, unspecified, uncomplicated; Z88.5 Allergy status to narcotic agent; Z91.030 Bee allergy status; Z91.018 Allergy to other foods; Z79.2 Long term (current) use of antibiotics
CPT/HCPCS: 96372; 99283; J1885